=== PATIENT | male | born 2005 | race Caucasian/White ===

== ENCOUNTER → 2024-01-06 | Emergency (ER) | payer BC ==
[~2024-01-06] MED LIST: CEFAZOLIN SODIUM 1 GM/VIAL ONE; HYDROMORPHONE HCL 1 MG/ML INJ ONE; LIDOCAINE 2% W/EPI 1:200,000 MPF 20 ML VIAL IM ONE; MORPHINE 4 MG/ML SYR ONE; NA CHLORIDE 0.9% 100 ML ONE; ONDANSETRON 4 MG/2 ML VIAL ONE; TDAP (DIPHTH,PERTUSS(ACELL),TET VAC) 0.5 ML VIAL IMVAC ONE
[2024-01-06 19:03] LABS: Absolute Basophils 0.1 K/uL (0-0.5); Absolute Eosinophils 0.1 K/uL (0-0.5); Absolute Neutrophil 6.6 K/uL (1.8-8.0); Basophils % 0.7 % (0-1.3); Eosinophils % 0.5 % (0-4.4); Hematocrit 43.8 % (39.6-49.0); Hemoglobin 15.4 g/dL (13.6-17.9); Lymphocytes % 20.4 % (15.3-44.8); MCH 30.5 pg (27.0-35.0); MCHC 35.1 g/dL (32.0-36.0); MCV 86.8 fL (80-100); MPV 8.4 fL (7.6-11.3); Monocytes % 9.8 % (3.3-12.3); Neutrophils % 68.6 % (41.7-73.7); Nucleated RBC Absolute Count 0.1 (0-0); Nucleated Red Blood Cells % 0.8 % (0-0); Platelets 231 thou/uL (152-406); RBC Red Blood Cell Count 5.04 M/uL (4.33-5.43); Red Cell Distribution Width 13.2 % (12.1-15.2)
[2024-01-06 19:16] LABS: Anion Gap 11.9 mEq/L (5.0-15.0); Potassium 3.9 mEq/L (3.5-5.1)
--- NOTE | 2024-01-06 19:39 | RAD REPORT ---
EXAM DESCRIPTION: CT - CTHCSPWOC - 01/06/2024 7:31 pm CLINICAL HISTORY: Trauma, head and neck injury. HEADACHE COMPARISON: No comparisons TECHNIQUE: Axial 5 mm thick images of the head were obtained. Axial 2 mm thick images of the cervical spine were obtained with sagittal and coronal reconstruction images generated and reviewed. All CT scans are performed using dose optimization technique as appropriate and may include automated exposure control or mA/KV adjustment according to patient size. FINDINGS: CT HEAD WITHOUT CONTRAST: No acute hemorrhage, hydrocephalus or extra-axial collection is identified.No areas of brain edema or midline shift. The paranasal sinuses and mastoids are clear.The calvarium is intact. CT CERVICAL SPINE WITHOUT CONTRAST: No fracture or subluxation.No prevertebral soft tissues swelling is identified. Reversal of the yoli l cervical lordosis. IMPRESSION: No acute intracranial or cervical spine findings.
--- NOTE | 2024-01-06 19:41 | RAD REPORT ---
EXAM DESCRIPTION: RAD - Forearm Right - 01/06/2024 7:36 pm CLINICAL HISTORY: PAIN COMPARISON: No comparisons FINDINGS/IMPRESSION: No acute fracture. No malalignment. No significant focal degenerative changes.
--- NOTE | 2024-01-06 19:41 | RAD REPORT ---
EXAM DESCRIPTION: RAD - Chest Single View - 01/06/2024 7:36 pm CLINICAL HISTORY: TRAUMA COMPARISON: No comparisons FINDINGS: Lines: None. Lungs: No evidence of edema or pneumonia. Pleural: No significant pleural effusions or pneumothorax. Cardiac: The heart size is within normal limits. Mediastinum: Within normal limits. Bones: No acute fractures. Other: None IMPRESSION: No acute cardiopulmonary disease.
--- NOTE | 2024-01-06 19:41 | RAD REPORT ---
EXAM DESCRIPTION: RAD - Humerus Left - 01/06/2024 7:35 pm CLINICAL HISTORY: PAIN COMPARISON: No comparisons FINDINGS/IMPRESSION: No acute fracture. No malalignment. No significant focal degenerative changes.
--- NOTE | 2024-01-06 19:41 | RAD REPORT ---
EXAM DESCRIPTION: RAD - Forearm Left - 01/06/2024 7:35 pm CLINICAL HISTORY: PAIN COMPARISON: No comparisons FINDINGS/IMPRESSION: Comminuted fracture involving the left mid ulna with butterfly fragment and ericka roximately 1/3 shaft width of maximal displacement and mild foreshortening. Radius is intact.
--- NOTE | 2024-01-06 19:42 | RAD REPORT ---
EXAM DESCRIPTION: RAD - Hand Right 3 View - 01/06/2024 7:36 pm CLINICAL HISTORY: PAIN COMPARISON: No comparisons FINDINGS/IMPRESSION: No acute fracture. No malalignment. No significant focal degenerative changes.
--- NOTE | 2024-01-06 21:02 | ER ---
Nurse's Notes [facility] Name: Calos Bianchi Age: 18 yrs Sex: Male : 2005 Arrival Date: 01/06/2024 Time: 18:26 Bed 2 Private MD: Diagnosis: Laceration without foreign body of right forearm;Displaced comminuted fracture of shaft of ulna, left arm, initial encounter for open fracture type I or II;Laceration without foreign body of unspecified part of head, initial encounter Presentation: 01/05 18:32 Chief complaint: Patient states: fell on some logs at the [facility], laceration ko1 to bilateral arms, laceration to top of head, did not loose consciousness. Coronavirus screen: At this time, the client does not indicate any symptoms associated with coronavirus-19. Ebola Screen: No symptoms or risks identified at this time. Initial Sepsis Screen: Does the patient meet any 2 criteria? No. Patient's initial sepsis screen is negative. Does the patient have a suspected source of infection? No. Patient's initial sepsis screen is negative. Risk Assessment: Do you want to hurt yourself or someone else? Patient reports no desire to harm self or others. Onset of symptoms was January 06, 2024. Care prior to arrival: Bleeding of injury controlled. Mechanism of Injury: [place]. 18:32 Method Of Arrival: Ambulatory ko1 18:32 Acuity: ALTAGRACIA 2 ko1 Triage Assessment: 18:34 General: Appears uncomfortable, Behavior is calm, cooperative, appropriate for age. ko1 Pain: Complains of pain in top of head, forehead, right arm and left arm. Historical: - Allergies: 18:34 No Known Allergies; ko1 - Home Meds: 18:34 Adderall oral [Active]; ko1 - PMHx: 18:34 None; ko1 - PSHx: 18:34 None; ko1 - Immunization history:: Adult Immunizations unknown. - Social history:: Smoking status: Patient denies any tobacco usage or history of. Screenin:52 [facility] ED Fall Risk Assessment (Adult) History of falling in the last 3 months, tm6 including since admission Yes- single mechanical fall (1 pt) Confusion or Disorientation No (0 pts) Intoxicated or Sedated No (0 pts) Impaired Gait No (0 pts) Mobility Assist Device Used No (0 pt) Altered Elimination No (0 pt) Score/Fall Risk Level 0 - 2 = Low Risk Oriented to surroundings, Maintained a safe environment. Abuse screen: Denies threats or abuse. Denies injuries from another. Nutritional screening: No deficits noted. Tuberculosis screening: No symptoms or risk factors identified. Assessment: 18:45 General: Appears uncomfortable, Behavior is calm, cooperative, appropriate for age. nj1 Pain: Complains of pain in left arm Pain currently is 10 out of 10 on a pain scale. Neuro: Level of Consciousness is awake, alert, obeys commands, Oriented to person, place, time, situation. Cardiovascular: Patient's skin is warm and dry. Respiratory: Airway is patent Respiratory effort is even, unlabored. Injury Description: Laceration sustained to bilateral forearms and forehead is 2.6 to 7.5 cm long, bleeding moderately, moderate bleeding noted at this time. A dressing was applied. 19:00 GI: Reports nausea. Derm: Skin is pale. nj1 20:07 Reassessment: Patient appears in no apparent distress at this time. Patient and/or tm6 family updated on plan of care and expected duration. Pain level reassessed. Patient is alert, oriented x 3, equal unlabored respirations, skin warm/dry/pink. 20:54 Reassessment: report called to [facility] ER, Luis RN. tm6 21:08 Reassessment: Splint and wound care performed by KAYLEE Ortiz with the assistance of latanya Hudson diagnostic technologist. 21:33 Reassessment: patient picked up by [facility]. tm6 21:34 Reassessment: Patient appears in no apparent distress at this time. Patient and/or tm6 family updated on plan of care and expected duration. Pain level reassessed. Patient is alert, oriented x 3, equal unlabored respirations, skin warm/dry/pink. Vital Signs: 18:32 BP 145 / 72; Pulse 73; Resp 19; Temp 97.3; Pulse Ox 99% on R/A; ko1 19:20 Pain 6/10; nj1 19:20 BP 136 / 94; Pulse 65; Resp 18; Pulse Ox 99% on R/A; Pain 6/10; nj1 20:06 Pulse 62; Pulse Ox 99% on R/A; Pain 4/10; tm6 20:46 BP 149 / 74; Pulse 94; Resp 19; Pulse Ox 100% on R/A; Pain 7/10; tm6 21:34 BP 160 / 79; Pulse 85; Resp 19; Pulse Ox 97% on R/A; Pain 4/10; tm6 19:20 Pain Scale: Adult nj1 19:20 Pain Scale: Adult nj1 20:06 Pain Scale: Adult tm6 20:46 Pain Scale: Adult tm6 21:34 Pain Scale: Adult tm6 ED Course: 18:29 Patient arrived in ED. eb 18:31 Guanaco Ortiz PA is PHCP. cp 18:31 Guanaco Campbell MD is Attending Physician. cp 18:34 Triage completed. ko1 18:34 Arm band placed on right wrist. Patient placed in an exam room, on a stretcher, on ko1 school lunch monitor, on pulse oximetry, Patient notified of wait time. 18:37 Aurelio Pillai MD is Attending Physician. cp 18:40 Juana Rondon RN is Primary Nurse. nj1 18:45 Patient has correct armband on for positive identification. Bed in low position. Call nj1 light in reach. Side rails up X 1. Provided Education on: call light, fall precautions. 18:48 Inserted saline lock: 20 gauge in right wrist, using aseptic technique. Blood collected.nj1 18:50 Warm blanket given. nj1 19:10 Report given to Mario CORBIN. nj1 19:32 CT Head C Spine In Process Unspecified. EDMS 19:37 XRAY Forearm LEFT In Process Unspecified. EDMS 19:37 XRAY Humerus LEFT In Process Unspecified. EDMS 19:37 XRAY Forearm RIGHT In Process Unspecified. EDMS 19:38 XRAY Chest (1 view) In Process Unspecified. EDMS 19:38 XRAY Hand RIGHT 3 View In Process Unspecified. EDMS 20:52 Assist provider with laceration repair on right arm that was between 2.6 to 7.5 cm Set tm6 up tray. Performed by Guanaco PAGE Patient tolerated well. 21:36 Patient transferred, IV remains in place. tm6 Administered Medications: 19:00 Drug: Ondansetron IVP 4 mg IVP once; over 2 minutes Route: IVP; Site: right wrist; nj1 19:20 Follow up: Response: No adverse reaction; Nausea is decreased nj1 19:02 Drug: morphine IVP or IV 4 mg IVP once over 4 mins Route: IVP; Infused Over: 4 mins; nj1 Site: right wrist; 19:20 Follow up: Pain 6/10 Adult; Response: No adverse reaction; Pain is decreased nj1 20:21 Drug: ceFAZolin IVPB 1 grams IVPB once Route: IVPB; Site: right hand; tm6 20:43 Drug: HYDROmorphone IVP 1 mg IVP once Route: IVP; Site: right hand; jb4 20:47 Not Given (Product Out of Stock): tetanus toxoid,adsorbed0.5 ml IM once; Provide tm6 Vaccine Information Statement (VIS). 20:48 Drug: Lidocaine-Epinephrine Infiltration -1%: (1:100,000) 20 ml 20 ml Infiltration tm6 once; to bedside {Note: administered by PA.} Volume: 20 ml; Route: Infiltration; 20:48 Drug: Boostrix Tdap IM 0.5 ml IM once; as a single dose Route: IM; Site: right deltoid; tm6 21:13 Drug: Ondansetron IVP 4 mg IVP once; over 2 minutes Route: IVP; Site: right hand; tm6 Medication: 21:36 VIS not applicable for this client. tm6 Outcome: 21:01 ER care complete, transfer ordered by MD. foley 21:35 Transferred by ground EMS to [facility], tm6 21:35 Condition: stable 21:35 Instructed on the need for transfer, Demonstrated understanding of instructions, 21:36 Patient left the ED. tm6 Signatures: Dispatcher [employer] EDMS Guanaco Ortiz PA PA cp Bryson, James, RN RN jb4 Tamika Johnson Kathy RN RN ko1 Juana Rondon RN RN nj1 Mario Sullivan RN RN tm6 Corrections: (The following items were deleted from the chart) 19:16 18:45 General: Appears uncomfortable, Behavior is calm, cooperative, appropriate for nj1 age, tm6 19:16 18:45 Pain: Complains of pain in left arm Pain currently is 10 out of 10 on a pain nj1 scale. tm6 19:16 18:45 Neuro: Level of Consciousness is awake, alert, obeys commands, Oriented to nj1 person, place, time, situation, [facility] 19:16 18:45 Cardiovascular: Patient's skin is warm and dry. [place] [id number] 19:16 18:45 Respiratory: Airway is patent Respiratory effort is even, unlabored, [place] [id number] 19:16 18:45 Injury Description: Laceration sustained to bilateral forearms and forehead is nj1 2.6 to 7.5 cm long, bleeding moderately, moderate bleeding noted at this time. A dressing was applied. [facility] 19:17 19:00 Reassessment: [place] [id number] :41 19:00 Ondansetron IVP 4 mg IVP in right wrist [place] [id number] :41 19:02 morphine IVP or IV 4 mg IVP in right wrist over 4 mins [place] [id number]
--- NOTE | 2024-01-06 21:02 | EDPHYS ---
Physician Documentation [facility] Name: Calos Bianchi Age: 18 yrs Sex: Male : 2005 Arrival Date: 01/06/2024 Time: 18:26 Bed 2 Private MD: ED Physician Aurelio Pillai HPI: 01/05 18:40 This 18 yrs old Male presents to ER via Ambulatory with complaints of Trauma. cp 18:40 Trauma demographics: County: The injury occurred in [place] Location of Injury: The cp injury occurred outdoors, Date: January 06, 2024. Associated injuries: The patient sustained injury to the head, laceration, left arm, laceration, painful injury, right arm, laceration. 18:40 Patient is a 18-year-old male who presents to the emergency department after reportedly cp jumping into [facility] [employer] and striking a log. Patient sustained lacerations to the upper forehead and scalp, right posterior proximal forearm and left posterior proximal forearm. Patient denies any loss of consciousness after striking head. Historical: - Allergies: 18:34 No Known Allergies; ko1 - Home Meds: 18:34 Adderall oral [Active]; ko1 - PMHx: 18:34 None; ko1 - PSHx: 18:34 None; ko1 - Immunization history:: Adult Immunizations unknown. - Social history:: Smoking status: Patient denies any tobacco usage or history of. ROS: 18:45 Constitutional: Negative for body aches, chills, fever, poor PO intake, cp 18:45 Cardiovascular: Negative for chest pain, palpitations, cp 18:45 Respiratory: Negative for cough, shortness of breath, wheezing, 18:45 Eyes: Negative for injury, pain, redness, and discharge, cp 18:45 ENT: Negative for drainage from ear(s), ear pain, sore throat, difficulty swallowing, cp difficulty handling secretions, 18:45 Abdomen/GI: Negative for abdominal pain, vomiting, diarrhea, constipation, 18:45 Back: Negative for pain at rest, pain with movement, 18:45 MS/extremity: Positive for laceration, pain, of the left forearm arm and right forearm, 18:45 Neuro: Positive for headache, Negative for altered mental status, loss of consciousness, 18:45 All other systems are negative, Exam: 18:52 Constitutional: The patient appears in no acute distress, alert, awake, non-toxic, well cp developed, well nourished, uncomfortable, 18:52 Head/face: Noted is a laceration(s), that is deep, that is linear, of the top of head cp and forehead, swelling, that is mild, of the top of head and forehead, 18:52 Eyes: Periorbital structures: appear normal, Pupils: equal, round, and reactive to light and accomodation, Extraocular movements: intact throughout, Conjunctiva: normal, no exudate, no injection, Sclera: no appreciated abnormality, Lids and lashes: appear normal, bilaterally, 18:52 ENT: External ear(s): are unremarkable, Nose: is normal, Mouth: Lips: moist, Oral mucosa: pink and intact, moist, Posterior pharynx: is normal, airway is patent, no erythema, no exudate, 18:52 Neck: C-spine: vertebral tenderness, is not appreciated, crepitus, is not appreciated, ROM/movement: pain, is not appreciated, limited range of motion, is not appreciated, 18:52 Chest/axilla: Inspection: normal, Palpation: is normal, no crepitus, no tenderness, 18:52 Cardiovascular: Rate: normal, Rhythm: regular, JVD: is not appreciated, 18:52 Respiratory: the patient does not display signs of respiratory distress, Respirations: normal, no use of accessory muscles, no retractions, labored breathing, is not present, Breath sounds: are clear throughout, no decreased breath sounds, no stridor, no wheezing, 18:52 Abdomen/GI: Inspection: abdomen appears normal, Palpation: abdomen is soft and non-tender, in all quadrants, 18:52 Back: no spinal tenderness to palpation, full AROM, 18:52 Musculoskeletal/extremity: Extremities: noted in the left proximal forearm: pain, painful ROM left elbow, Pulses: noted to be 2+ in the right radial artery and left radial artery, 18:52 Skin: injury, laceration(s), of the forehead and top of head, of the posterior aspect left proximal forearm, of the proximal posterior aspect right forearm, that can be described as foreign body containing, linear, with moderate bleeding, 18:52 Neuro: Orientation: to person, place \T\ time. Mentation: is normal, Motor: moves all fours, strength is normal, Sensation: no obvious gross deficits, Vital Signs: 18:32 BP 145 / 72; Pulse 73; Resp 19; Temp 97.3; Pulse Ox 99% on R/A; ko1 19:20 Pain 6/10; nj1 19:20 BP 136 / 94; Pulse 65; Resp 18; Pulse Ox 99% on R/A; Pain 6/10; nj1 20:06 Pulse 62; Pulse Ox 99% on R/A; Pain 4/10; tm6 20:46 BP 149 / 74; Pulse 94; Resp 19; Pulse Ox 100% on R/A; Pain 7/10; tm6 21:34 BP 160 / 79; Pulse 85; Resp 19; Pulse Ox 97% on R/A; Pain 4/10; tm6 19:20 Pain Scale: Adult nj1 19:20 Pain Scale: Adult nj1 20:06 Pain Scale: Adult tm6 20:46 Pain Scale: Adult tm6 21:34 Pain Scale: Adult tm6 MDM: 18:34 Patient medically screened. [facility] 21:05 Data reviewed: vital signs, nurses notes, lab test result(s), radiologic studies, CT cp scan, plain films. 21:05 I considered the following discharge prescriptions or medication management in the emergency department Medications were administered in the Emergency Department. See MAR. Independent interpretation of the following test(s) in the Emergency Department X-Ray: My interpretation is images of left forearm show comminuted proximal ulna fracture. Counseling: I had a detailed discussion with the patient and/or guardian regarding the historical points, exam findings, and any diagnostic results supporting the discharge/admit diagnosis, lab results, radiology results, the need to transfer to another facility, for higher level of care. 01/05 18:36 Order name: Basic Metabolic Panel; Complete Time: 19:25 cp 01/05 19:25 Interpretation: Normal except: GLUC 122. cp 01/05 18:36 Order name: CBC with Diff; Complete Time: 19:25 cp 01/05 19:25 Interpretation: Reviewed. cp 01/05 18:36 Order name: Type And Screen cp 01/05 20:37 Order name: ABO/RH no charge EDMS 01/05 18:36 Order name: CT Head C Spine cp 01/05 18:36 Order name: XRAY Forearm LEFT cp 01/05 18:36 Order name: XRAY Humerus LEFT cp 01/05 18:36 Order name: XRAY Forearm RIGHT cp 01/05 18:36 Order name: XRAY Chest (1 view) cp 01/05 19:16 Order name: XRAY Hand RIGHT 3 View cp 01/05 18:36 Order name: Labs collected and sent; Complete Time: 18:57 cp 01/05 19:27 Order name: Wound Care: please clean and irrigate wounds; Complete Time: 20:45 cp 01/05 19:29 Order name: Splint: left long arm; Complete Time: 20:45 cp 01/05 20:05 Order name: Dressing - Wound; Complete Time: 20:45 cp 01/05 20:05 Order name: Gloves, Sterile; Complete Time: 20:45 cp 01/05 20:05 Order name: Setup Suture Tray; Complete Time: 20:45 cp Administered Medications: 19:00 Drug: Ondansetron IVP 4 mg IVP once; over 2 minutes Route: IVP; Site: right wrist; nj1 19:20 Follow up: Response: No adverse reaction; Nausea is decreased nj1 19:02 Drug: morphine IVP or IV 4 mg IVP once over 4 mins Route: IVP; Infused Over: 4 mins; nj1 Site: right wrist; 19:20 Follow up: Pain 6/10 Adult; Response: No adverse reaction; Pain is decreased nj1 20:21 Drug: ceFAZolin IVPB 1 grams IVPB once Route: IVPB; Site: right hand; tm6 20:43 Drug: HYDROmorphone IVP 1 mg IVP once Route: IVP; Site: right hand; jb4 20:47 Not Given (Product Out of Stock): tetanus toxoid,adsorbed0.5 ml IM once; Provide tm6 Vaccine Information Statement (VIS). 20:48 Drug: Lidocaine-Epinephrine Infiltration -1%: (1:100,000) 20 ml 20 ml Infiltration tm6 once; to bedside {Note: administered by PA.} Volume: 20 ml; Route: Infiltration; 20:48 Drug: Boostrix Tdap IM 0.5 ml IM once; as a single dose Route: IM; Site: right deltoid; tm6 21:13 Drug: Ondansetron IVP 4 mg IVP once; over 2 minutes Route: IVP; Site: right hand; tm6 Disposition: 01/06 01:03 Co-signature as Attending Physician, Aurelio Pillai MD I reviewed the patient's care rt provided by the Advanced Practice Provider and agree with the diagnosis and treatment plan. Disposition Summary: 01/06/24 21:01 Transfer Ordered Notes: Transfer Location: [facility] cp Reason: Higher level of care cp Condition: Stable cp Problem: new cp Symptoms: have improved cp Accepting Physician: DR Smith(01/06/24 21:36) tm6 Diagnosis - Laceration without foreign body of right forearm cp - Displaced comminuted fracture of shaft of ulna, left arm, initial encounter for cp open fracture type I or II - Laceration without foreign body of unspecified part of head, initial encounter cp Discharge Instructions: - Discharge Summary Sheet tm6 Forms: - Medication Reconciliation Form cp - SBAR form tm6 Signatures: Dispatcher [employer] EDGuanaco Lopes MD MD cha Page, Corey, PA PA cp Bronson Govea RN RN jb4 Safia Malave RN RN ko1 Aurelio Pillai MD MD rt Juana Rondon RN RN nj1 Mario Sullivan RN RN tm6 Corrections: (The following items were deleted from the chart) 01/05 21:36 21:01 DR Smith cp tm6
[2024-01-06 22:19] VITALS: BP 160/79; TEMP 97.3; O2SAT 97
== END ==
LOC: ER 18:26
PROC: 2W3BX1Z Immobilization of Left Upper Arm using Splint (ICD-10-PCS; principal; 2024-01-06)
DX: S01.81XA Laceration without foreign body of other part of head, initial encounter (principal); S52.252B Displaced comminuted fracture of shaft of ulna, left arm, initial encounter for open fracture type I or II; S51.811A Laceration without foreign body of right forearm, initial encounter
CPT/HCPCS: 12002; 29105 ×2; 85025; 80048; 36415; 86900; 86850; 86901; 70450; 72125; 71045; 73130; 73090 ×2; 73060; 96372; 99285; J1170; J2405 ×2; J0690